=== PATIENT | male | born 1985 | race Asian ===

== ENCOUNTER 2017-01-12 19:35 | Emergency (ER) | payer OTHER ==
[~2017-01-12] VITALS: Ht 177.8 cm; Wt 71.4 kg
[2017-01-12] MEDS ORDERED: AMLO10TA2 PO (20:23)
[2017-01-12] MEDS ORDERED: FAMOTIDINE 20 MG TABLET ONE (20:23)
[2017-01-12 20:29] VITALS: BP 147/102
[2017-01-12] MEDS ORDERED: FAMOTIDINE 20 MG TABLET PO ONE (20:30)
== END 2017-01-12 22:12 | disposition home or self-care (01) ==
LOC: ED 21:24
DX: L50.0 Allergic urticaria (principal); I10 Essential (primary) hypertension; M10.9 Gout, unspecified; T78.1XXA Other adverse food reactions, not elsewhere classified, initial encounter; X58.XXXA Exposure to other specified factors, initial encounter
CPT/HCPCS: 99284; J7512; Q0177